=== PATIENT | female | born 1995 | race Caucasian/White ===

== ENCOUNTER 2017-01-08 10:10 | Emergency (ER) | payer BC ==
[~2017-01-08] VITALS: Ht 172.7 cm; Wt 68.2 kg
[2017-01-08 10:21] VITALS: TEMP 37.1; Ht 172.7 cm; Wt 68.2 kg
[2017-01-08] MEDS ORDERED: METHYLPREDNISOLONE 125 MG VIAL IV STA (10:37)
[2017-01-08] MEDS ORDERED: MoRPHine SULFATE 4 MG/ML 1 ML CARP\\VIAL IV PRN (10:45)
[2017-01-08] MEDS ORDERED: SODIUM CHLORIDE 0.9% 1000ML 1,000 ML IV ONE (10:45)
[2017-01-08] MEDS ORDERED: ONDANSETRON INJ 2 MG/ML 2 ML VIAL IV PRN (10:45)
--- NOTE | 2017-01-08 10:50 | EMERGENCY ROOM VISIT NOTE ---
History Report prepared by Jacquie: Moisés Hamilton Under the Supervision of: Dr. James Lerma M.D. First contact with patient: 10:28 Chief Complaint: SORETHROAT Stated Complaint: ENLARGED LEFT TONSIL/TROUBLE SWALLOWING History of Present Illness The patient is a 21 year old female who presents to the Emergency Room with complaints of a worsening sore throat beginning three days prior to arrival. She currently rates her discomfort as a 6/10 in severity. The patient states she tried to have a left peritonsillar abscess drained on December 13, but nothing came out. She notes she was on a course of antibiotics and steroids. The patient states she was cleared after her ten day follow up appointment. She associates a cough, difficulty swallowing, muffled voice, and a subjective fever with today's symptoms. The patient states the left side of her throat is worse than the right. She notes a history of tonsillitis a few months ago, as well. The patient states she has been urinating and moving her bowels normally. She denies nausea. 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 Please see Additional Medical History Sheet. Past Medical & Surgical Medical Problems: (1) Peritonsillar abscess (2) Tonsillitis Family History Patient reports no known family medical history. Social History Smoking Status: Never Smoker Marital Status: single Housing Status: lives with roommate Occupation Status: [employer] student Current/Historical Medications Scheduled Fluconazole (Diflucan), 150 MG PO QD Prednisone (Prednisone), 50 MG PO DAILY Allergies Coded Allergies: No Known Allergies (Unverified , 01/08/17) Physical Exam Vital Signs Date Time Temp Pulse Resp B/P Pulse Ox O2 Delivery O2 Flow Rate FiO2 01/08/17 13:15 89 18 104/62 97 01/08/17 11:31 72 18 118/68 100 Room Air 01/08/17 10:39 99 Room Air 01/08/17 10:21 37.1 84 16 116/71 99 Room Air Physical Exam GENERAL: Patient awake, alert, oriented x 3. Patient follows commands. Patient does not appear toxic. Patient is adequately hydrated and well- nourished. SKIN: No erythema, pallor, cyanosis or rash HEENT: Normal head, pupils equal, reactive to light and accommodation. Ears normal. Patient has marked swelling of both tonsils, left greater than right. Tonsils and uvula are all touching. Bilateral submandibular adenopathy, no neck vein distention. LUNGS: Clear to auscultation. No wheezes, no rales, no rhonchi. HEART: No murmurs. No gallops. No rubs ABDOMEN: Soft, nontender. EXTREMITIES: No signs of trauma or infection. NEUROLOGIC: Cranial nerves II-XII within normal limits. No gross motor sensory function deficits. Medical Decision & Procedures Laboratory Results 01/08/17 10:50 Red Blood Count 4.39, Mean Corpuscular Volume 88.2, Mean Corpuscular Hemoglobin 30.8, Mean Corpuscular Hemoglobin Concent 34.9, Mean Platelet Volume 9.7, Neutrophils (%) (Auto) 63.1, Lymphocytes (%) (Auto) 26.7, Monocytes (%) (Auto) 9.3, Eosinophils (%) (Auto) 0.4, Basophils (%) (Auto) 0.2, Neutrophils # (Auto) 5.92, Lymphocytes # (Auto) 2.50, Monocytes # (Auto) 0.87, Eosinophils # (Auto) 0.04, Basophils # (Auto) 0.02 01/08/17 10:50 Test 01/08/17 10:50 White Blood Count 9.38 K/uL (4.8-10.8) Red Blood Count 4.39 M/uL (4.2-5.4) Hemoglobin 13.5 g/dL (12.0-16.0) Hematocrit 38.7 % (37-47) Mean Corpuscular Volume 88.2 fL (80-100) Mean Corpuscular Hemoglobin 30.8 pg (25-34) Mean Corpuscular Hemoglobin Concent 34.9 g/dl (32-36) Platelet Count 234 K/uL (130-400) Mean Platelet Volume 9.7 fL (7.4-10.4) Neutrophils (%) (Auto) 63.1 % Lymphocytes (%) (Auto) 26.7 % Monocytes (%) (Auto) 9.3 % Eosinophils (%) (Auto) 0.4 % Basophils (%) (Auto) 0.2 % Neutrophils # (Auto) 5.92 K/uL (1.4-6.5) Lymphocytes # (Auto) 2.50 K/uL (1.2-3.4) Monocytes # (Auto) 0.87 K/uL (0.11-0.59) Eosinophils # (Auto) 0.04 K/uL (0-0.5) Basophils # (Auto) 0.02 K/uL (0-0.2) RDW Standard Deviation 43.3 fL (36.4-46.3) RDW Coefficient of Variation 13.5 % (11.5-14.5) Immature Granulocyte % (Auto) 0.3 % Immature Granulocyte # (Auto) 0.03 K/uL (0.00-0.02) Anion Gap 7.0 mmol/L (3-11) Est Creatinine Clear Calc Drug Dose 130.4 ml/min Estimated GFR () 145.6 Estimated GFR (Non- 125.6 BUN/Creatinine Ratio 14.2 (10-20) Calcium Level 9.0 mg/dl (8.5-10.1) Total Bilirubin 0.9 mg/dl (0.2-1) Direct Bilirubin 0.2 mg/dl (0-0.2) Aspartate Amino Transf (AST/SGOT) 22 U/L (15-37) Alanine Aminotransferase (ALT/SGPT) 56 U/L (12-78) Alkaline Phosphatase 70 U/L (45-117) Total Protein 8.4 gm/dl (6.4-8.2) Albumin 3.9 gm/dl (3.4-5.0) Monoscreen POS (NEG) Laboratory results as stated above per my review. Medications Administered Medications (Trade) Dose Ordered Sig/Adalgisa Route Start Time Stop Time Status Last Admin Dose Admin Sodium Chloride (Nss 1000ml) 1,000 ml @ 1,000 mls/hr Q1H ONCE IV 01/08/17 10:45 01/08/17 11:44 DC 01/08/17 11:05 1,000 MLS/HR Morphine Sulfate (MoRPHine SULFATE INJ) 4 mg Q1H PRN IV 01/08/17 10:45 01/08/17 13:27 DC 01/08/17 11:06 4 MG Ondansetron HCl (Zofran Inj) 4 mg Q1HWA PRN IV 01/08/17 10:45 01/08/17 13:27 DC 01/08/17 11:05 4 MG Methylprednisolone Sodium Succinate (Solu-Medrol IV) 125 mg NOW STAT IV 01/08/17 10:37 01/08/17 10:41 DC 01/08/17 11:06 125 MG ED Course 1028: Past medical records reviewed. The patient was evaluated in room B12B. A complete history and physical examination was performed. 1037: Ordered Solu-Medrol IV 125 mg IV. 1045: Ordered Zofran Inj 4 mg IV, Morphine Sulfate 4 mg IV, Sodium Chloride 1, 000 ml @ 1,000 mls/hr IV. 1146: Reevaluated the patient and updated the patient and her mother at this time. 1230: Upon reevaluation, the patient appeared to have improvement of her symptoms. I discussed today's findings with the patient and her family. The patient and her family verbalized agreement of the treatment plan. The patient was discharged home. Medical Decision Nurses notes reviewed. Medical history sheet reviewed. Differential diagnosis includes but is not limited to: strep pharyngitis, peritonsillar abscess, viral pharyngitis. Rapid strep test was negative. Traill test was positive. White count is not elevated. Patient does not appear to have splenomegaly or hepatomegaly. Liver enzymes are not elevated. The patient's symptoms have been going on intermittently for 4-6 weeks. I believe this is most likely all related to underlying mononucleosis. The patient did get some relief with steroids in the past and she will be placed back on steroids for another 5 days. She is to FOLLOW-UP AT [facility] this week. Late in the course of her stay the patient complained of some yeast vaginitis. The patient was started on Diflucan. Impression Primary Impression: Mononucleosis Additional Impression: Yeast vaginitis Scribe Attestation The scribe's documentation has been prepared under my direction and personally reviewed by me in its entirety. I confirm that the note above accurately reflects all work, treatment, procedures, and medical decision making performed by me. Departure Information Dispostion Home / Self-Care Prescriptions Fluconazole (DIFLUCAN) 100 Mg Tab 150 MG PO QD, #2 TAB Prov: Ziff, James,M.D. 01/08/17 Prednisone (PREDNISONE) 50 Mg Tab 50 MG PO DAILY for 5 Days, #5 TAB Prov: James Lerma M.D. 01/08/17 Referrals No Doctor, Assigned (PCP) Forms HOME CARE DOCUMENTATION FORM, IMPORTANT VISIT INFORMATION Patient Instructions ED Mononucleosis, My [facility] Additional Instructions Drink extra fluids. REST. FOLLOW-UP AT [facility] 1 prednisone daily for 5 days. Start tomorrow. Off school for 2 days. School Instructions Specific Date: 01/11/17 Problem Qualifiers
[2017-01-08 11:01] LABS: BASO % 0.2 %; BASO ABS # 0.02 K/uL (0-0.2); COMPLETE YES; EOS % 0.4 %; HEMATOCRIT 38.7 % (37-47); IG% 0.3 %; LYMPH % 26.7 %; MEAN CELL VOLUME 88.2 fL (80-100); MEAN CORPUSCULAR HEMOGLOBIN 30.8 pg (25-34); MEAN CORPUSCULAR HGB CONC 34.9 g/dl (32-36); MEAN PLATELET VOLUME 9.7 fL (7.4-10.4); MONO % 9.3 %; NEUT % 63.1 %; PLATELET COUNT 234 K/uL (130-400); RED BLOOD COUNT 4.39 M/uL (4.2-5.4); WHITE BLOOD COUNT 9.38 K/uL (4.8-10.8)
[2017-01-08 11:29] LABS: BUN/CREATININE RATIO 14.2 (10-20); CREATININE 0.7 mg/dl (0.60-1.20); POTASSIUM 3.9 mmol/L (3.5-5.1)
[2017-01-08] MEDS ORDERED: PRED50TA PO (12:42)
[2017-01-08] MEDS ORDERED: FLUC100T4 PO (13:03)
[2017-01-08 13:15] VITALS: BP 104/62; PULSE 89; O2SAT 97
[2017-01-09] MEDS ORDERED: PRED10TA PO (20:36)
[2017-01-09] MEDS ORDERED: HYDR1SOL10 PO (20:36)
[2017-01-09] MEDS ORDERED: SACC250C11 PO (20:36)
[2017-01-09] MEDS ORDERED: CLIN300C2 PO (20:36)
== END 2017-01-08 13:17 | disposition home or self-care (01) ==
LOC: C.EDB 10:13
DX: B27.90 Infectious mononucleosis, unspecified without complication (principal); B37.3 Candidiasis of vulva and vagina

== ENCOUNTER 2017-01-09 18:37 | Emergency (ER) | payer BC ==
[~2017-01-09] VITALS: Ht 170.2 cm; Wt 68.2 kg
[~2017-01-09 18:37] MED LIST: FLUC100T4 PO; PRED50TA PO
[2017-01-09 18:55] VITALS: TEMP 37.3; Ht 170.2 cm; Wt 68.2 kg
[2017-01-09] MEDS ORDERED: FENTANYL CITRATE INJ 50 MCG/1 ML 2 ML VIAL IV STA (19:13)
[2017-01-09] MEDS ORDERED: SODIUM CHLORIDE 0.9% 1000ML 1,000 ML IV STA (19:13)
[2017-01-09] MEDS ORDERED: CLINDAMYCIN IV 600 MG in DEXTROSE 5% ADD-VANTAGE 50ML 50 ML IV ONE (19:15)
[2017-01-09] MEDS ORDERED: LIDOCAINE/EPINEPHRINE 1% 20 ML VIAL ONE (19:31)
[2017-01-09 19:35] LABS: HEMATOCRIT 37.4 % (37-47); MEAN CELL VOLUME 87.2 fL (80-100); MEAN CORPUSCULAR HEMOGLOBIN 29.6 pg (25-34); MEAN PLATELET VOLUME 9.5 fL (7.4-10.4); PLATELET COUNT 245 K/uL (130-400); RED BLOOD COUNT 4.29 M/uL (4.2-5.4); WHITE BLOOD COUNT 10.96 K/uL (4.8-10.8)
--- NOTE | 2017-01-09 19:46 | EMERGENCY ROOM VISIT NOTE ---
History Report prepared by Jacquie: Laney Malloy Under the Supervision of: Dr. Roly Bravo M.D. First contact with patient: 19:00 Chief Complaint: THROAT PAIN/INJURY Stated Complaint: SWELLED THROAT/CANT OPEN MOUTH, CANT SAWLLOW PAIN History of Present Illness The patient is a 21 year old female who presents to the Emergency Room with complaints of worsening throat pain for the past couple of weeks. The patient had some swelling of her left tonsil at the end of November. She was seen by Dr. Trujillo of ENT at [facility]. He tried to drain it but was unable to get anything out. The patient states that last week her symptoms started to worsen. Her throat has become more swollen and she has pain with swallowing. She reports of feeling of pressure in the back of her throat. The patient came to the ED yesterday for evaluation. She was diagnosed with mononucleosis and given IV fluids and steroids. The patient was discharged home. Today she is unable to swallow her secretions. She has been unable to swallow her steroid pills. She states that she had a spoonful of pudding and a couple of sips of warm water today, but that was all she was able to swallow. The patient's mother notes that the swelling of her throat and neck is worse compared to yesterday. Today the patient is unable to open her mouth fully. She also reports a cough for the past couple of days. The patient was sent to the ED by [facility] for further evaluation. She has not had any CT imaging of her throat. She rates her current pain as an 8/10. 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 A total of 10 systems reviewed and were otherwise negative. Past Medical & Surgical Medical Problems: (1) Peritonsillar abscess (2) Tonsillitis Family History Patient reports no known family medical history. Social History Smoking Status: Never Smoker Marital Status: single Housing Status: lives with roommate Occupation Status: [employer] student Current/Historical Medications Scheduled Clindamycin Hcl (Cleocin), 300 MG PO QID Prednisone Tab (Prednisone), 10 MG PO DIRECTED Saccharomyces Boulardii (Probiotic), 1 TAB PO DAILY Scheduled PRN Hydrocodone-Acetaminophen (Hydrocodone/Acetami 7.5/325MG 15ML), 5-10 ML PO Q4H PRN for Pain Allergies Coded Allergies: No Known Allergies (Unverified , 01/08/17) Physical Exam Vital Signs Date Time Temp Pulse Resp B/P Pulse Ox O2 Delivery O2 Flow Rate FiO2 01/09/17 20:51 70 18 131/78 100 Room Air 01/09/17 18:55 37.3 72 20 112/71 96 Room Air Physical Exam GENERAL: Patient is uncomfortable appearing and in moderate distress. HEENT: No acute trauma, normocephalic atraumatic, mucous membranes moist, no nasal congestion, no scleral icterus. She is able to open her mouth only a small amount, large left tonsil with midline shift of uvula to the right, diffuse erythema of the posterior oropharynx. NECK: Shoddy anterior lymphadenopathy. No stridor, no meningismus, trachea is midline. LUNGS: No dyspnea. Clear to auscultation and equal bilaterally. No wheeze, no rhonchi. HEART: Regular rate and rhythm. No murmurs, rubs, gallops appreciated. ABDOMEN: Soft, nontender, bowel sounds positive, no masses appreciated, no peritonitis. BACK: No midline tenderness, no CVA tenderness EXTREMITIES: Normal motion all extremities, no cyanosis, no edema. NEUROLOGIC: Alert and oriented, no acute motor or sensory deficits, no focal weakness, cranial nerves grossly intact. SKIN: No rash, no jaundice, no diaphoresis. Medical Decision & Procedures Laboratory Results 01/09/17 19:20 01/09/17 19:20 Test 01/09/17 19:20 Red Blood Count 4.29 M/uL (4.2-5.4) Mean Corpuscular Volume 87.2 fL (80-100) Mean Corpuscular Hemoglobin 29.6 pg (25-34) Mean Corpuscular Hemoglobin Concent 34.0 g/dl (32-36) RDW Standard Deviation 43.2 fL (36.4-46.3) RDW Coefficient of Variation 13.6 % (11.5-14.5) Mean Platelet Volume 9.5 fL (7.4-10.4) Anion Gap 10.0 mmol/L (3-11) Est Creatinine Clear Calc Drug Dose 122.2 ml/min Estimated GFR () 140.7 Estimated GFR (Non- 121.4 BUN/Creatinine Ratio 13.2 (10-20) Calcium Level 9.2 mg/dl (8.5-10.1) C-Reactive Protein 1.19 mg/dl (0-0.29) Laboratory results as reviewed by me. Medications Administered Medications (Trade) Dose Ordered Sig/Adalgisa Route Start Time Stop Time Status Last Admin Dose Admin Fentanyl Citrate 50 mcg 50 mcg NOW STAT IV 01/09/17 19:13 01/09/17 19:15 DC 01/09/17 19:36 50 MCG Sodium Chloride 1,000 ml @ 999 mls/hr Q1H1M STAT IV 01/09/17 19:13 01/09/17 20:13 DC 01/09/17 19:35 999 MLS/HR Clindamycin Phosphate/Dextrose (Cleocin Iv/ Dextrose Add-[place] 50ML) 54 ml @ 100 mls/hr ONE ONCE IV 01/09/17 19:15 01/09/17 19:47 DC 01/09/17 19:15 100 MLS/HR Dexamethasone Sodium Phosphate (Decadron Inj) 10 mg NOW ONCE IV 01/09/17 20:45 01/09/17 20:46 DC 01/09/17 20:45 10 MG Acetaminophen/ Hydrocodone Bitart (Hydrocod/Apap Elix 7.5/325MG/ 15ML Home Pack) 1 homepack UD ONCE PO 01/09/17 20:45 01/09/17 20:46 DC 01/09/17 21:26 1 HOMEPACK ED Course 1899: The patient was evaluated in room C3. A complete history and physical exam was performed. 1912: NSS 1000 ml @ 999 mls/hr IV, Fentanyl 50 mcg IV 1912: At this time I spoke with Dr. Phillips of ENT. We discussed the patient's case and he will come ot the ED to evaluate the patient. He recommended starting clindamycin. 1914: Clindamycin Phosphate 600 mg/Dextrose 54 ml @ 100 mls/hr IV 1917: I updated the patient and her mother. She is getting her IV now. 1953: I reassessed the patient at this time. Dr. Phillips drained 10CCs of exudate out of the left tonsil. 2009: The patient is feeling better and resting comfortably. 2044: Acetaminophen/Hydrocodone Bitart PO 1 homepack, Decadron 10 mg IV 2123: I reassessed the patient at this time. She is feeling better and resting comfortably. I discussed the results and treatment plan with the patient and her mother. I answered all pertaining questions that they had. They expressed understanding and verbalized agreement. The patient will be discharged home. Medical Decision Differential: Viral, Tonsillitis, Strep, [place], Peritonsillar Abscess, Retropharyngeal Abscess, Otitis, Pneumonia, Influenza, amongst other pathologies entertained. 21 yr old female with left tonsillar abscess by examination. She is not septic and is maintaining her airway. ENT was immediately consulted post my evaluation and they were bedside in short order. Labs unremarkable. ENT drained large amount exudate from left tonsil. Dr Phillips requested re-dose Decadron, then prolonged Pred/Clinda rx. Will add on probiotic given recent Augmentin use and the prolonged Clinda she will be on. Discussed signs/ symptoms of cdiff for which to monitor. She is feeling well and tolerated post procedure for well over an hour. She will follow up with ENT in 2 days. I will give Lortab elixer for outpatient use to help with pain control. Though noted the need to take pills of pred/clinda. Discussed symptoms requiring emergent return to ED. Stable and feeling well at discharge, maintaining airway and swallowing secretions. Consults Time Called: 1909 Consulting Physician: Dr. Phillips Returned Call: 1912 At this time I spoke with Dr. Phillips of ENT. We discussed the patient's case and he will come ot the ED to evaluate the patient. He recommended starting clindamycin. Impression Primary Impression: Tonsillar abscess Scribe Attestation The scribe's documentation has been prepared under my direction and personally reviewed by me in its entirety. I confirm that the note above accurately reflects all work, treatment, procedures, and medical decision making performed by me. Departure Information Dispostion Home / Self-Care Prescriptions Saccharomyces Boulardii (Probiotic) 250 Mg Cap 1 TAB PO DAILY for 15 Days, #15 TAB Prov: Roly Bravo M.D. 01/09/17 Clindamycin Hcl (CLEOCIN) 300 Mg Cap 300 MG PO QID for 14 Days, #56 CAP Prov: Roly Bravo M.D. 01/09/17 Prednisone Tab (PREDNISONE) 10 Mg Tab 10 MG PO DIRECTED, #42 TAB 4 tabs twice daily for 2 days, then 3 tabs twice daily for 2 days, then 2 tabs twice daily for 2 days, then 1 tab twice daily for 2 days, then 1 tab daily for 2 days. Prov: Roly Bravo M.D. 01/09/17 Hydrocodone-Acetaminophen (HYDROCODONE/ACETAMI 7.5/325MG 15ML) 1 Jasmin Jasmin 5-10 ML PO Q4H Y for Pain, #100 ML Prov: Roly Bravo M.D. 01/09/17 Referrals Everardo Phillips MD Forms HOME CARE DOCUMENTATION FORM, IMPORTANT VISIT INFORMATION, WORK / SCHOOL INSTRUCTIONS Patient Instructions ED Tonsillitis, [facility] Additional Instructions You have received a narcotic pain medication prescription. These medications may cause drowsiness and should not be used with other sedative medications. Do not drive, drink alcohol, perform dangerous activities, nor make important decisions after taking these medications. [facility] use or inappropriate use may lead to addiction.
[2017-01-09 19:51] LABS: CREATININE 0.72 mg/dl (0.60-1.20)
[2017-01-09 19:52] LABS: BUN/CREATININE RATIO 13.2 (10-20); C-REACTIVE PROTEIN 1.19 mg/dl (0-0.29); CALCIUM 9.2 mg/dl (8.5-10.1); POTASSIUM 4.1 mmol/L (3.5-5.1)
[2017-01-09] MEDS ORDERED: HYDR1SOL10 PO (20:36)
[2017-01-09] MEDS ORDERED: SACC250C11 PO (20:36)
[2017-01-09] MEDS ORDERED: PRED10TA PO (20:36)
[2017-01-09] MEDS ORDERED: CLIN300C2 PO (20:36)
[2017-01-09] MEDS ORDERED: HYDROCODONE/APAP ELIX 60ML HOME PACK PO ONE (20:45)
[2017-01-09] MEDS ORDERED: DEXAMETHASONE SOD INJ 10 MG/ML VIAL IV ONE (20:45)
[2017-01-09 20:51] VITALS: BP 131/78; PULSE 70; O2SAT 100
--- NOTE | 2017-01-10 00:12 | ENT CONSULTATION ---
DATE OF CONSULTATION: 01/09/2017 I have been asked by the Dr. Bravo in the [facility] Emergency Room to evaluate this patient with possible left peritonsillar abscess. HISTORY OF PRESENT ILLNESS: The patient is a 21-year-old female, who presented to the [facility] Emergency Room with worsening left-sided sore throat and associated mild left referred otalgia, odynophagia, dysphagia, and muffled voice. The patient was previously seen last month by Dr. Lalito Trujillo for a possible left peritonsillar abscess for which an incision and drainage did not reveal any purulent material. She was placed appropriately on antibiotics and steroids and was seen back in followup in his office in 10 days. However, approximately 1 week later, she developed recurrent sore throat and presented to the [facility] and they sent her to the [facility] Emergency Room yesterday where she was diagnosed with mono and placed on prednisone 50 mg daily for 5 days. Despite the prednisone, her symptoms worsened and she re-presented today with worsening left-sided sore throat. Prior to November, she had one episode of strep throat in July and no prior history of recurrent strep throats or peritonsillar abscesses. ALLERGIES: No known drug allergies. MEDICATIONS UPON PRESENTATION: Prednisone, as described above and Diflucan. PAST MEDICAL HISTORY: As above. PAST SURGICAL HISTORY: Status post wisdom teeth extraction. FAMILY HISTORY: Noncontributory. 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 She denies any tobacco, alcohol or illicit drug use. REVIEW OF SYSTEMS: The patient has sore throat, odynophagia, dysphagia, and muffled voice. She has left referred otalgia. She denies any lightheadedness, dizziness, or chest pain. She does have trismus. She does have decreased oral intake over the past 3-4 days. She does have left upper neck pain and cough. PHYSICAL EXAMINATION: GENERAL: This is an ill-appearing white female, in no acute distress with no stertor or stridor, with a muffled voice. Bilateral external auditory canals and tympanic membranes are clear. Nasal examination reveals a midline septum with no mucosal lesions or masses. Oral cavity and oropharyngeal examination reveals severe trismus and halitosis. There is a previous incision and drainage site in the left soft palate, which is well healed. The left tonsil is 4+ and the right tonsil is 3+ with uvular deviation to the right-hand side. The oropharyngeal airway is narrowed and there is uvular edema. NECK: Reveals tender upper jugular left-sided lymphadenopathy. Trachea is midline. There is no thyroid nodularity. NEUROLOGIC: Cranial nerves II-XII are grossly intact. The patient is awake and alert and oriented x3. PLAN: After verbally obtaining informed consent, the oral cavity and oropharynx were sprayed with Cetacaine anesthetic spray. 1.5 mL of 1% lidocaine with 1:100,000 epinephrine was then used to inject the left peritonsillar tissues. An 18-gauge needle on a 12 mL syringe was then used to aspirate approximately 5 mL of purulent material, which was sent for Gram stain and culture. A #11 scalpel was then used to make a transverse incision in the soft palate in the patient's previous incisional scar. Immediately, a large amount of yellow thick purulent material was expressed and suctioned with the CloudCheckrkauer suction. More anesthetic with 1% lidocaine with 1:100,000 epinephrine was instilled through the transverse incision to more fully anesthetize the patient's throat. A curved tonsil clamp was then used to spread the left peritonsillar space and the left neck was expressed with approximately a total of 10 mL of purulent material obtained with both the needle, tonsil clamp, and pressure on the neck. The patient noted that she was "70%" better after the procedure and was now able to open her mouth more fully. She tolerated the procedure well with no apparent complication. The patient's mother was at the bedside. IMPRESSION AND RECOMMENDATIONS: A 21-year-old female with lower left peritonsillar abscess, status post incision and drainage. I would recommend clindamycin 300 mg p.o. q. 6 hours for 14 days as well as prednisone 40 mg p.o. b.i.d. for 2 days, followed by 30 mg p.o. b.i.d. for 2 days, followed by 20 mg p.o. b.i.d. for 2 days, followed by 10 mg p.o. b.i.d. for 2 days, followed by 10 mg daily for 2 days. I would like to see her back in my office on January 11 at 1:00 p.m. She may require future tonsillectomy. The patient currently has infectious mononucleosis and if she has a tonsillectomy, it would be yuan to try to avoid it for the next 4-6 weeks. The patient and her mother are in agreement with this plan. All of the recommendations and procedure were discussed with Dr. Bravo.
== END 2017-01-09 21:25 | disposition home or self-care (01) ==
LOC: C.EDB 18:38 → C.EDC 21:25
DX: J36 Peritonsillar abscess (principal)